=== PATIENT | female | born 1990 | race Caucasian/White ===

== ENCOUNTER 2023-05-14 09:57 | Observation (INO) | payer BC, OTHER ==
[~2023-05-14] VITALS: Ht 172.7 cm; Wt 79.4 kg
[~2023-05-14 09:57] MED LIST: AMPHET/DEXTR PO; HEPARIN SOD (PORCINE) 5000UNITS/ML 1ML VIAL/SYRINGE SQ ONE; IRON65TA2 PO; LIDOCAINE 2% 100MG/5ML SDV (FOR ANES.) As Ordered ONE; LIDOCAINE 5% OINT 30GM TUBE As Ordered ONE; ONDANSETRON 4MG 2ML VIAL As Ordered ONE; PANT40TA29 PO; ROCURONIUM BROMIDE 50MG/5ML VIAL As Ordered ONE; SUGAMMADEX SODIUM 500 MG/5 ML VIAL (BRIDION) As Ordered ONE; VENL37.598 PO; VITMTA PO; ceFAZolin SOD 2 GM in IV 1 EA IV ONE; propofoL 200 MG/20 ML VIAL As Ordered ONE
[2023-05-14] MEDS ORDERED: LR 1,000 ML IV SCH ×2 (10:20→15:55)
[2023-05-14] MEDS ORDERED: GENTAMICIN SULF 80MG/2ML VIAL As Ordered ONE (12:01)
[2023-05-14] MEDS ORDERED: fentaNYL 250 MCG/5 ML INJECTION As Ordered ONE (12:10)
[2023-05-14] MEDS ORDERED: MIDAZOLAM INJ 2MG/2ML VIAL As Ordered ONE (12:10)
[2023-05-14] MEDS ORDERED: ROCURONIUM BROMIDE 50MG/5ML VIAL As Ordered ONE ×2 (12:54→14:12)
[2023-05-14] MEDS ORDERED: ACETAMINOPHEN 1000MG 100ML IV BAG As Ordered ONE (13:00)
[2023-05-14] MEDS ORDERED: HYDROmorphone HCL 2MG/ML 1ML VIAL As Ordered ONE (13:15)
[2023-05-14] MEDS ORDERED: GLYCOPYRROLATE INJ 0.2 MG/ML 2 ML VIAL As Ordered ONE (13:22)
[2023-05-14] MEDS ORDERED: fentaNYL 100 MCG/2 ML INJECTION As Ordered ONE (14:50)
[2023-05-14] MEDS ORDERED: ONDANSETRON 4MG 2ML VIAL IV PRN ×2 (15:55→16:10)
[2023-05-14] MEDS ORDERED: METOCLOPRAMIDE INJ 10MG/2ML VIAL IV PRN (15:55)
[2023-05-14] MEDS ORDERED: fentaNYL 100 MCG/2 ML INJECTION IV PRN (15:55)
[2023-05-14] MEDS: HYDROMORPHONE HCL 0.5 MG/ 0.5 ML SYRINGE IV PRN ×2 (16:33→16:38)
[2023-05-14] MEDS: oxyCODONE 5MG TAB PO PRN ×2 (16:33→17:03)
[2023-05-14] MEDS ORDERED: ceFAZolin SOD 2 GM in IV 1 EA IV ONE (17:00)
[2023-05-14 17:45] VITALS: BP 134/87; TEMP 98; O2SAT 90
[2023-05-14] MEDS: LR 1,000 ML IV SCH (17:48)
[2023-05-14 18:15] VITALS: BP 136/83; TEMP 99.1; O2SAT 97
[2023-05-14 19:15] VITALS: BP 133/81; TEMP 97.9; O2SAT 98
[2023-05-14 19:30] VITALS: O2SAT 98
[2023-05-14] MEDS: ACETAMINOPHEN TAB 650MG DOSE (2X325MG) PO PRN (19:48)
[2023-05-14 20:47] VITALS: BP 141/84; TEMP 98.2; O2SAT 98
[2023-05-14] MEDS: traMADol 50 MG TAB PO PRN (21:12)
[2023-05-14 22:38] VITALS: BP 139/79; TEMP 98.1; O2SAT 98
[2023-05-14] MEDS: PERCOCET 5MG/325MG TAB PO PRN (22:40)
[2023-05-15 02:29] VITALS: BP 97/72; TEMP 98.2; O2SAT 100
[2023-05-15] MEDS: ACETAMINOPHEN TAB 650MG DOSE (2X325MG) PO PRN ×2 (03:23→14:44)
[2023-05-15] MEDS: traMADol 50 MG TAB PO PRN ×2 (03:23→14:07)
[2023-05-15] MEDS: LR 1,000 ML IV SCH (05:15)
[2023-05-15 05:18] VITALS: BP 113/63; TEMP 98.1; O2SAT 97
[2023-05-15 06:41] LABS: HEMATOCRIT 37.5 % (36.0-47.0); HEMOGLOBIN 12.2 g/dl (12.0-15.5); MEAN CORPUSCULAR HEMOGLOBIN 29.9 pg (27.0-33.0); MEAN CORPUSCULAR HGB CONC 32.5 g/dl (32.0-36.5); MEAN CORPUSCULAR VOLUME 91.9 fl (80.0-96.0); PLATELET COUNT, AUTOMATED 196 10^3/uL (150-450); RED BLOOD COUNT 4.08 10^6/uL (4.00-5.40); WHITE BLOOD COUNT 6.5 10^3/uL (4.0-10.0)
[2023-05-15] MEDS: PERCOCET 5MG/325MG TAB PO PRN ×2 (08:36→18:00)
[2023-05-15 10:00] VITALS: BP 113/63; TEMP 98.8; O2SAT 94
[2023-05-15 14:00] VITALS: BP 128/69; TEMP 98.4; O2SAT 97
[2023-05-15] MEDS ORDERED: PERCOCET PO (17:24)
== END 2023-05-15 18:15 | disposition home or self-care (01) ==
LOC: M SDC 09:57 → M RR INP 09:58 → M MS5PR 17:30
PROVIDERS: ADMIT Plastic Surgery Surgery of the Hand; ATTEND Plastic Surgery Surgery of the Hand
DX: M54.07 Panniculitis affecting regions of neck and back, lumbosacral region (principal); M62.08 Separation of muscle (nontraumatic), other site; Z98.84 Bariatric surgery status; K21.9 Gastro-esophageal reflux disease without esophagitis; F41.9 Anxiety disorder, unspecified; F32.A Depression, unspecified; G43.909 Migraine, unspecified, not intractable, without status migrainosus; F17.210 Nicotine dependence, cigarettes, uncomplicated; Z79.899 Other long term (current) drug therapy
CPT/HCPCS: 15830; 36415; 81025; 82040; 85027; 88300; 96374; C9290; J0131; J0690; J1100; J1170; J1580; J2250; J2405; J3010; S0020